=== PATIENT | male | born 1935 | race Caucasian/White ===

== ENCOUNTER 2018-07-05 12:54 | Outpatient (CLI) | payer OTHER | END 2018-07-05 15:00 | disposition home or self-care (01) | LOC: LAB 12:54 | DX: R97.20 Elevated prostate specific antigen [PSA] (principal) ==

== ENCOUNTER → 2019-05-09 12:54 | Outpatient (CLI) | payer OTHER | END | disposition home or self-care (01) | LOC: LAB 12:54 | DX: R97.20 Elevated prostate specific antigen [PSA] (principal) ==

== ENCOUNTER → 2019-07-27 | Outpatient (CLI) | payer OTHER | END | disposition home or self-care (01) | LOC: SONOGRAMA 07:18 | DX: R97.20 Elevated prostate specific antigen [PSA] (principal) ==